=== PATIENT | male | born 1980 | race Caucasian/White ===

== ENCOUNTER 2019-04-13 09:46 | Day surgery (SDC) | payer OTHER ==
[2019-04-13] MEDS ORDERED: LACTATED RINGERS 1,000 ML IV ONE ×2 (09:53→13:00)
[2019-04-13] MEDS ORDERED: cefTRIAXone 2 GM VIAL ONE (09:53)
--- NOTE | 2019-04-13 10:38 | ANESTHESIA ---
Pre-Anesthesia VS, & Labs - Diagnosis Left shoulder pain - Procedure left shoulder scope, subacromial decompression, open distal clavicle excision possible rotator cuff repair and biceps tenodesis Vital Signs: Temp Pulse Resp BP Pulse Ox 36.0 C L 61 12 132/91 H 98 04/13/19 09:58 04/13/19 09:58 04/13/19 09:58 04/13/19 09:58 04/13/19 09:58 Height 6 ft Weight (kg) 108.86 kg - NPO >8 hours Home Medications and Allergies Home Medications: Ambulatory Orders Valacyclovir HCl [Valacyclovir] 500 mg PO PRN 04/09/19 Valacyclovir HCl [Valacyclovir] 500 mg PO PRN 04/09/19 Allergies/Adverse Reactions: Allergies Allergy/AdvReac Type Severity Reaction Status Date / Time No Known Drug Allergies Allergy Verified 04/09/19 14:02 Anes History & Medical History - Anesthetic History Anesthesia Complications: reports: No previous complications - Medical History Cardiovascular: reports: None Pulmonary: reports: None, Other (Probable sleep apnea, snores at night) Gastrointestinal: reports: None Urinary: reports: None Neuro: reports: Seizure disorder (had seizure with menegitis, no further issues), Other (History of viral menengitis) Musculoskeletal: reports: Other Endocrine/Autoimmune: reports: None Blood Disorders: reports: None Skin: reports: None Smoking Status: Never smoker Psychosocial: reports: Alcohol (1-2 drinks per week) - Surgical History Orthopedic: Other (Left wrist ORIF) Exam General: Alert, Oriented x3, Cooperative, No acute distress Dental: WNL Mouth Openin Fingerbreadth Neck Mobility: Normal Mallampati classification: I Thyromental Distance: greater than 6 cm Respiratory: Lungs clear, Normal breath sounds, No respiratory distress, No accessory muscle use Cardiovascular: Regular rate, Normal S1, Normal S2, No murmurs Mental/Cognitive Status: Alert/Oriented X3, Normal for patient Plan Anesthesia Type: General, Interscalene Block (Left ISB) Regional Block: Per Surgeon's request for Post Op pain control Consent for Procedure(s) Verified and Reviewed: Yes Code Status: Attempt Resuscitation ASA classification: 2-Mild systemic disease Is this case an emergency?: No
[2019-04-13] MEDS ORDERED: EPINEPHrine 1 MG/ML AMP ONE (10:58)
[2019-04-13] MEDS ORDERED: BUPIVACAINE 0.25% PF 30 ML VIAL ONE (11:01)
--- NOTE | 2019-04-13 12:01 | ANESTHESIA PROCEDURE NOTE ---
Diagnosis: Left shoulder pain. Left shoulder scope Procedure: Left Interscalene block Consent for Procedure(s) Verified and Reviewed: Yes Height and Weight: Height 6 ft Weight (kg) 108.86 kg Vital Signs: Temp Pulse Resp BP Pulse Ox 36.0 C L 61 12 132/91 H 98 04/13/19 09:58 04/13/19 09:58 04/13/19 09:58 04/13/19 09:58 04/13/19 09:58 Allergies No Known Drug Allergies Allergy (Verified 04/09/19 14:02) Requesting Provider: Zara Location: Left ASA classification: 2-Mild systemic disease Is this case an emergency?: No Anes. Monitoring and Equipment: Non-invasive BP, Pulse oximetery Anes. Procedure Start Time: 11:06 Anes. Procedure Stop Time: 11:15 Procedure Notes: Time out completed. Left neck prepped with chloroprep. 100mcg fentanyl and 2mg versed given IV for patient comfort. Ultrasound was used to image the left brachial plexus and a 22G stimiplex needle was advanced towards the nerve sheath. A total of 30ml of 0.5% ropivicaine with 4mg decadron was injected around the nerve bundle after negative aspiration. Adequate spread was noted and no paresthesia was elicited. Patient tolerated the procedure well. Full evaluation pending. Images saved to ultrasound hard drive.
[2019-04-13] MEDS ORDERED: BUPIVACAINE 0.25% PF 30 ML VIAL SUBQ ONE (13:39)
[2019-04-13] MEDS ORDERED: ONDANSETRON 4 MG/2 ML VIAL IVP PRN (14:13)
[2019-04-13] MEDS ORDERED: oxyCODONE 5 MG TABLET PO PRN (14:13)
--- NOTE | 2019-04-13 14:22 | OPERATIVE REPORT ---
Operative Report - Other Other Information/Narrative: Date of Surgery: 13 April 2019 Pre-Op Diagnosis: Left shoulder bursitis. Left shoulder impingement. SLAP lesion of left shoulder. Biceps tendinitis. Left acromioclavicular joint arthritis Procedure: Left shoulder arthroscopy with intra-articular debridement. Subacromial decompression. Open distal clavicle excision. Mini open biceps tenodesis Postop Diagnosis: Same Primary Surgeon: Eren Zuñiga Secondary Surgeon: Shalom Dumont Complications: None EBL: 25 cc IMPLANTS: Fiber tack by [employer] POSTOPERATIVE PLAN: 0-2 weeks-Sling at all times. Pendulum exercises 5 times per day. 2-6 weeks-Passive and active range of motion without limitations. No active flexion of the elbow 6-12 weeks-Gradually increase strengthening focusing on rotator cuff and scapular stabilizers per protocol. 16 weeks and beyond-Introduce dynamic activities. EXAMINATION UNDER ANESTHESIA: ROM: Full Anterior load and shift: Stable Posterior load and shift: Stable Inferior sulcus: Stable ARTHROSCOPIC FINDINGS: Rotator interval: Normal Biceps tendon & SLAP: Type II SLAP tear. Biceps tendon without tear itself. Biceps tenodesis was performed Subscapularis: Normal Rotator Cuff: Normal HAGL: Normal Labrum: Rozina complex anteriorly with tear of the anterior labrum, this was debrided Glenoid Cartilage: Normal Humeral Head Cartilage: Normal INDICATION FOR SURGERY: 38-year-old male with 4 years of left shoulder pain consistent with AC joint arthritis, bursitis, and SLAP tear. Nonoperative managment failed to resolve symptoms. The risks, benefits, and alternatives were discussed. Risks included pain, bleeding, infection, damage to nearby structures, lack of symptom relief, implant complications, stiffness, need for further surgeries, DVT, PE, stroke, and even . He signed a written consent form. PROCEDURE IN DETAIL: The patient was met in the preoperative holding on the day of the procedure. Operative extremity was signed. Consent was verified. They desired to proceed. Regional anesthesia was obtained in the preoperative area. They were brought to the operating room and surrendered to anesthesia. Once general anesthesia was obtained they were placed in the lateral decubitus position with the operative side up. An axillary roll was placed and all bony prominences were well-padded. A surgical timeout was held to confirm the patient procedure, identity, procedure, laterality, allergies, images, and antibiotics. All were in agreement we proceeded. A standard diagnostic arthroscopy was performed utilizing posterior and anterosuperior portals. The anterosuperior portal was created under direct visualization and localized with a spinal needle. The 7 mm cannula was placed anteriorly. The findings of the diagnostic arthroscopy can be found above. I then proceeded to debride the tear of the anterior labrum. I then used a biter and cut the long head of biceps at its insertion onto the superior labrum. I then used the shaver to debride the SLAP tear. The camera was then put up front to better evaluate the posterior labrum and no significant pathology was seen. SUBACROMIAL DECOMPRESSION: The instruments and cannula were then removed from the glenohumeral joint. The scope trocar was placed in the posterior portal and the acromion was felt. It was then inserted just under the acromion scraping along the bone until the CA ligament was felt. The scope trocar was then brought just lateral to the CA ligament and out the anterior incision. The cannula was then brought over the scope trocar arthroscope were inserted. The arthroscope was backed up until the shaver and arthroscope in the subacromial space. I then systemically debrided the bursa using a sucker shaver and radiofrequency ablation wand. A direct lateral incision was made and the bursectomy and decompression was completed through the lateral incision. All soft tissue was debrided from the underside of the acromion and the posterior edge of the CA ligament was lifted. I brought my decompression out to the distal clavicle and the acromion and the shaver was used to debride an inferior osteophyte off of the medial acromion. Care was taken to keep the deltoid fascia intact. The rotator cuff was then evaluated and there was no full- thickness tear. Final images were taken OPEN DISTAL CLAVICLE EXCISION: A 5 cm incision was made in line with the clavicle, centered over the acromioclavicular joint. Electrocautery was used to obtain hemostasis. Full-thickness skin flaps were made at the level of the fascia/joint capsule. A full-thickness longitudinal was made longitudinally to open the acromioclavicular joint. Electrocautery was used to dissect the joint capsule from the bony surfaces. 2 Homans were placed around the distal clavicle. Rongeur was used to debride the intra-articular disc. An 8 mm resection was measured and performed with a sagittal saw. Care was taken to ensure this cut was parallel to the joint surface. All sharp bony edges were rounded. A finger was placed with into the defect and the arm was adducted fully without any impingement in the joint. The joint was then irrigated copiously. A watertight capsular and fascial closure was performed with 0 Vicryl. MINI OPEN BICEPS TENODESIS: A 5 cm incision was made near the axillary fold centered over the pectoralis major tendon. Electrocautery was used to obtain hemostasis. The fascia was opened with dissection scissors. Blunt digital dissection was used to identify the intertubercular groove just under the pectoralis major tendon. The long head of the biceps tendon was visualized within this interval. The short head of the biceps was retracted with my finger and the right angle was used to deliver the tendon of the long head of the biceps out of the wound. A sharma elevator was then used to debride all synovial tissue from the intertubercular groove. A fibertack was placed high within the groove. Both limbs of the fibertack were pulled on and it was well fixed. I then whipstitched the biceps tendon starting 2 cm proximal to the musculotendinous junction down to the musculotendinous junction and back up to the same 2 cm location with a single limb of the suture tack. The other suture was placed once through the tendon at the 2 cm location. I then cut all excess tendon off. The suture limb that was passed the single time was then pulled on and this reduced the tendon nicely into the groove. The elbow was fully straightened and there was no excess tension on the repair site. I then tied 7 reverse half hitches alternating to secure the tendon in its place. The wound was then irrigated copiously. The portal sites were then closed with 3-0 Monocryl buried. Any open incisions were closed with 2-0 Vicryl in the dermis and a running 3-0 Monocryl in the skin. Mastisol and Steri-Strips were applied. A sterile dressing and a sling was applied. A sling was placed. The patient was awakened and transferred to the recovery room.
[2019-04-13] MEDS ORDERED: fentaNYL 100 MCG/2 ML VIAL ONE (14:34)
[2019-04-13] MEDS ORDERED: ONDANSETRON 4 MG/2 ML VIAL ONE (14:41)
[2019-04-13] MEDS ORDERED: oxyCODONE 5 MG TABLET ONE (15:10)
[2019-04-13 15:59] VITALS: BP 117/77
== END 2019-04-13 09:47 | disposition home or self-care (01) ==
LOC: SDS 09:46
PROVIDERS: ATTEND Orthopaedic Surgery
DX: M19.012 Primary osteoarthritis, left shoulder (principal); M75.52 Bursitis of left shoulder; M25.812 Other specified joint disorders, left shoulder; S43.432A Superior glenoid labrum lesion of left shoulder, initial encounter; M75.22 Bicipital tendinitis, left shoulder; Z72.0 Tobacco use; Z86.19 Personal history of other infectious and parasitic diseases